=== PATIENT | male | born 1990 | race Caucasian/White ===

== ENCOUNTER 2017-03-17 18:11 | Emergency (ER) | payer OTHER, BC ==
[~2017-03-17] VITALS: Ht 170.2 cm; Wt 79.7 kg
[2017-03-17] MEDS ORDERED: SKELAXIN800 MG PO (20:54)
[2017-03-17] MEDS ORDERED: MOTRIN600 MG PO (20:54)
[2017-03-17 22:30] VITALS: BP 137/95
== END 2017-03-17 22:31 | disposition home or self-care (01) ==
LOC: EME 18:11
DX: S16.1XXA Strain of muscle, fascia and tendon at neck level, initial encounter (principal); R51 Headache; F17.200 Nicotine dependence, unspecified, uncomplicated; V49.59XA Passenger injured in collision with other motor vehicles in traffic accident, initial encounter; Y92.410 Unspecified street and highway as the place of occurrence of the external cause; Z88.0 Allergy status to penicillin
CPT/HCPCS: 70450; 72040; 99281; 99283